=== PATIENT | female | born 1990 | race Hispanic/Latino ===

== ENCOUNTER → 2023-10-22 08:20 | Outpatient (REF) | payer BC, SELFPAY ==
[2023-10-22 09:01] LABS: % Basophils 0.7 % (0-2); % Eosinophils 4.6 % (0-6); % Immature Granulocytes 0.2 % (0-0.5); % Lymphocytes 28.4 % (20.5-51.1); % Monocytes 6.5 % (1.7-9.3); % Neutrophils 59.6 % (42.2-75.2); Absolute Eosinophils 0.2 10^3/uL (0-0.7); Absolute Lymphocytes 1.3 10^3/uL (1.2-3.4); Absolute Monocytes 0.3 10^3/uL (0.1-0.6); Absolute Neutrophils 2.8 10^3/uL (1.4-6.5); Hematocrit 38.2 % (37.0-47.0); Mean Corpuscular Volume 91.2 fL (81.0-99.0); Mean Platelet Volume 10.2 fL (7.4-10.4); Nucleated Red Blood Cells % 0 %; Platelet Count 233 10^3/uL (130-400); Red Blood Cell Count 4.19 10^6/uL (4.20-5.40); Red Cell Dist. Width 12.1 % (11.5-14.5); White Blood Cell Count 4.6 10^3/uL (4.8-10.8)
[2023-10-22 09:13] LABS: Erythrocyte Sed Rate 7 mm/hour (0-20)
[2023-10-22 11:05] LABS: C-Reactive Protein < 5.00 mg/L (0.0-10.00)
[2023-10-22 11:19] LABS: ALT (SGPT) 12 U/L (0-35); AST (SGOT) 20 U/L (14-36); Albumin 4.6 g/dl (3.5-5.0); Alkaline Phosphatase 45 U/L (38-126); Blood Urea Nitrogen 12 mg/dl (7-17); Calcium 9.6 mg/dl (8.4-10.2); Carbon Dioxide 24 mmol/L (22-30); Chloride 103 mmol/L (98-107); Glucose 87 mg/dl (70-99); Potassium 4.5 mmol/L (3.5-5.1); Sodium 138 mmol/L (135-145); Total Bilirubin 1.2 mg/dl (0.2-1.3); eGFR > 60.00
[2023-10-22 11:32] LABS: Vitamin D, 25-OH*** 39.1 ng/mL (30-80)
[2023-10-22 11:46] LABS: TSH Reflex To Free T4 0.59 uIU/ml (0.47-4.68)
[2023-10-22 11:49] LABS: Ferritin 15.1 ng/ml (6.24-137)
[2023-10-22 12:47] LABS: Folate 7.2 ng/ml (2.76-20)
[2023-10-24 02:54] LABS: ANA, IgG Reflex to HEp-2 Detected (None Detected)
[2023-10-26 07:07] LABS: ANA, HEp-2, IgG Detected (<1:80)
[2023-10-26 07:09] LABS: ANA Pattern Centromere
== END ==
LOC: REG 08:20
PROVIDERS: ATTENDING PHYSICIAN Psychiatry & Neurology Neurology; FAMILY PHYSICIAN Family Medicine
DX: G43.109 Migraine with aura, not intractable, without status migrainosus (principal)
CPT/HCPCS: 36415; 80053; 82306; 82728; 82746; 84443; 85025; 85652; 86038; 86039; 86140

== ENCOUNTER 2023-12-25 08:18 | Emergency (ER) | payer SELFPAY ==
[2023-12-25 08:22] VITALS: BP 120/71
[2023-12-25] MEDS: TYLENOL 650 MG PO (09:18)
[2023-12-25 09:50] LABS: HCG, Urine Qualitative Screen Negative
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
== END 2023-12-25 11:33 | disposition home or self-care (01) ==
LOC: EMR 08:18
PROVIDERS: Physician Assistant; EMERGENCY PHYSICIAN Student in an Organized Health Care Education/Training Program; FAMILY PHYSICIAN Nurse Practitioner Family
DX: S16.1XXA Strain of muscle, fascia and tendon at neck level, initial encounter (principal); R07.89 Other chest pain; S70.312A Abrasion, left thigh, initial encounter; V43.62XA Car passenger injured in collision with other type car in traffic accident, initial encounter
CPT/HCPCS: 99285; 70450; 71046; 72125; 81025; 93005

== ENCOUNTER 2024-01-13 11:25 | Outpatient (RCR) | payer OTHER, BC, SELFPAY | END 2024-01-20 23:59 | disposition home or self-care (01) | LOC: RPT 11:25 | PROVIDERS: ATTENDING PHYSICIAN Nurse Practitioner Family | DX: Z73.6 Limitation of activities due to disability (principal); S13.4XXD Sprain of ligaments of cervical spine, subsequent encounter | CPT/HCPCS: 97162; 97535 ==

== ENCOUNTER → 2024-02-17 16:06 | Outpatient (REF) | payer BC, SELFPAY | LOC: CPAP 16:06 | PROVIDERS: ATTENDING PHYSICIAN Obstetrics & Gynecology | DX: R87.612 Low grade squamous intraepithelial lesion on cytologic smear of cervix (LGSIL) (principal) | CPT/HCPCS: 88305 ==